=== PATIENT | female | born 1985 | race Caucasian/White ===

== ENCOUNTER 2023-06-25 13:50 | Emergency (ER) | payer BC, SELFPAY ==
[2023-06-25] VITALS (11 sets, daily range): BP systolic 102–128; BP diastolic 69–82; PULSE 60–121; RESP 16–20; TEMP 36.8–36.9; O2SAT 98–100; BMI 24.5
--- NOTE | 2023-06-25 13:51 | ECG_ITS ---
APPROVED REPORT Exam: Resting ECG HR:121 bpm ECG Measurements Heart Rate 121 AXES VA 161 P 77 QRSd 81 QRS 76 QT 338 T 33 QTc 410 Conclusion SINUS TACHYCARDIA NONSPECIFIC ST & T-WAVE ABNORMALITY ABNORMAL RHYTHM ECG Electronically signed by : INDIA FRANK, 06/25/2023 23:36:31
--- NOTE | 2023-06-25 14:11 | CT_ITS ---
FINAL REPORT TECHNIQUE: The patient was injected with IV contrast. Axial images were obtained through the chest in a PE protocol. 3-D reconstruction images were also performed. Individualized dose reduction techniques using automated exposure control or adjustment of the MA and/or KV according to patient's size were employed. CLINICAL HISTORY: chest pain, presyncope, L arm pain/tingling COMPARISON: None FINDINGS: Mediastinal vasculature is adequately opacified. No pulmonary artery filling defects are identified to suggest PE. There is no aortic dissection. There is no axillary adenopathy. There is no hilar or mediastinal adenopathy. There is soft tissue in the anterior mediastinum that is likely thymic in origin. The heart size is normal. There is no pericardial or pleural effusion. Limited images of the upper abdomen are unremarkable. No suspicious infiltrate or nodule is identified. There is a calcified granuloma in the lingula. IMPRESSION: No pulmonary embolus or dissection. Reviewed, Interpreted and Dictated by Bhupendra Amador MD Transcribed by Candis Clayton Authenticated and [facility]
[2023-06-25 14:21] LABS: Basophils # 0.2 K/mm3 (0-0.2); Basophils % 1.5 % (0.1-2.0); Eosinophils # 0.1 K/mm3 (0.0-0.4); Eosinophils % 0.5 % (0.1-12.0); Hematocrit 46.3 % (37.0-47.0); Hemoglobin 14.9 g/dL (12.2-16.2); Lymphocytes # 3.7 K/mm3 (0.7-4.5); Lymphocytes % 35.6 % (10-50); Mean Corpuscular HGB Conc 32.2 g/dL (31.8-35.4); Mean Corpuscular Hemoglobin 30.1 pg (27.0-31.2); Mean Corpuscular Volume 93.6 fl (81-99); Mean Platelet Volume 7.6 fl (7.4-10.4); Monocytes # 0.6 K/mm3 (0.1-1.0); Monocytes % 5.3 % (1.7-9.3); Platelet Count 296 K/mm3 (142-424); Red Blood Count 4.95 M/mm3 (4.20-5.40); Red Cell Distribution Width 12.9 % (11.5-17.5); White Blood Count 10.4 K/mm3 (4.8-10.8)
[2023-06-25 14:23] LABS: Chloride 106 mmol/L (98-107); Sodium 139 mmol/L (136-145)
[2023-06-25 14:24] LABS: Potassium 3.6 mmoL/L (3.5-5.1)
[2023-06-25 14:26] LABS: Alanine Aminotransferase 29 U/L (12-78); Albumin Level 4.6 g/dl (3.5-5.0); Albumin/Globulin Ratio 1.8 (1.1-1.8); Alkaline Phosphatase 70 U/L (38-126); Anion Gap 9.6 mEq/L (5-15); Aspartate Amino Transferase 28 U/L (14-36); Bilirubin,Total 0.9 mg/dl (0.2-1.3); Blood Urea Nitrogen 13 mg/dl (7-17); Carbon Dioxide 27 mmol/L (22.0-30.0); Creatinine Clearance Estimated 90 mL/min (50-200); Estimated Glomerular Filt Rate 81 ml/min (>60); GFR (African American) 98 ML/MIN (>60); Globulin 2.6 g/dL (1.3-3.2); Total Protein,Serum 7.2 g/dl (6.3-8.2)
[2023-06-25 14:27] LABS: Calcium 9.5 mg/dl (8.4-10.2); Glucose 96 mg/dl (74-100)
--- NOTE | 2023-06-25 14:27 | ED_ITS ---
Discharge Plan Disposition Patient Disposition: Home, Self-Care Referrals Follow up/Referrals: Jamison Powell [Primary Care Provider] - See instructions Josias Pride MD [Staff Physician] - See instructions Activity Restrictions/Add. Instructions Additional Instructions/Restrictions: At this time it was felt you are safe to be discharged home. If new or worsening symptoms please do not hesitate to return the emergency department. Please call and schedule an appointment with Dr. Pride as soon as you are able. Clinical Impressions Clinical Impression: Chest pain Discharge ED Provider: Martell Geiger HPI <Brina Rodgers DO - Last Filed: 06/25/23 15:43> General Chief Complaint: Chest Pain Stated Complaint: chest pain Time Seen by Provider: 06/25/23 13:56 Mode of Arrival: Ambulatory Source of Information: Patient Limitations: No Limitations Description of Symptoms (Recalled from ER Triage Doc. 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 Patient states she has had intermittent bilateral arm weakness for a week. History of Present Illness HPI narrative: This patient is a 37-year-old female who reports a history of anxiety dysfunctional uterine bleeding, for which she has been undergoing workup for approximately 2 years, presenting with concern for chest pain. Patient reports that she has had intermittent pain and paresthesias in her left upper extremity, radiating from her neck. She states that she thought that she had pinched a nerve in her neck. This has been ongoing for several months now, so she did not think much of that. 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 It was substernal radiating to her left arm. She stated that she felt like she was going to pass out. She denies experiencing anything like this in the past. She denies any history of blood clots, clotting disorders, recent travel, surgeries, or mental medication use. She does note extensive family cardiac history, but denies any history herself. Related Data Allergies Allergy/AdvReac Type Severity Reaction Status Date / Time No Known Allergies Allergy Verified 06/25/23 14:44 PFSH <Brina Rodgers DO - Last Filed: 06/25/23 15:43> [facility] Disclaimer: The information contained in this section may have been updated after the patient was seen, as this information can be updated by other users. Social History (Updated 06/25/23 @ 15:43 by Brina Rodgers DO) Smoking Status: Never smoker alcohol intake: never current occupational status: employed Travel in the last 8 weeks: None <Brina Rodgers DO - Last Filed: 06/25/23 15:43> ROS Obtained: Yes All systems reviewed & no additional complaints except as documented Physical Exam <Brina Rodgers DO - Last Filed: 06/25/23 15:43> General General appearance: alert and in no apparent distress Head Head exam: atraumatic and normocephalic Eye Eye exam: Present normal appearance, PERRL and EOMI ENT ENT exam: Present normal exam, normal oropharynx, mucous membranes moist and normal external ear exam Neck Neck exam: Present normal inspection, full ROM and trachea midline; Absent tenderness Chest Chest inspection: Present normal inspection and symmetric chest wall rise; Absent tenderness Respiratory Respiratory exam: Present normal lung sounds bilaterally; Absent respiratory distress, wheezes, stridor or accessory muscle use Cardiovascular Cardiovascular exam: Present normal rhythm and tachycardia Abdominal Exam Abdominal exam: Present soft; Absent distention, tenderness or guarding Extremities Exam Extremities exam: Present normal inspection, full ROM and normal capillary refill; Absent tenderness or edema Back Exam Back exam: Present normal inspection and full ROM; Absent tenderness Neurological Exam Neurological exam: Present alert, oriented X3, CN II-XII intact and normal gait; Absent motor sensory deficit Psychiatric Psychiatric exam: Present normal affect and normal mood Skin Skin exam: Present warm and dry HEART Score <Brina Rodgers DO - Last Filed: 06/25/23 15:43> HEART Score HEART Score assessment performed?: Yes History (anamnesis): Moderately suspicious ECG: Normal Age: <45 years Risk factors: No known risk factors Troponin: </= normal limit HEART Score: 1 <Martell Geiger MD - Last Filed: 06/25/23 17:36> HEART Score HEART Score: 1 Procedures <Brina Rodgers DO - Last Filed: 06/25/23 15:43> Risk/Benefits of Procedure(s) Were Explained: Yes Limited Ultrasound Findings:: Limited cardiac ultrasound Indication: Chest pain, presyncope Identified cardiac views: [-Cardiac parasternal long axis] [-Cardiac parasternal short axis] [-Cardiac apical four-chamber] [-Cardiac subxiphoid] Findings: [-Cardiac activity present -Gross wall motion normal -Pericardial effusion absent -Right heart strain absent] Impression: -[From above] Images were saved to permanent archive The study was technically adequate CPT: 79349 This study was performed by me, and I personally interpreted all images/videos. Based on my clinical judgement, these images were adequate and did not necessitate further imaging. Critical Care <Brina Rodgers, - Last Filed: 06/25/23 15:43> Critical Care Time Critical Care Time: No Medical Decision Making <Brina Rodgers DO - Last Filed: 06/25/23 15:43> Medical Records Medical records reviewed: Yes I reviewed the patient's medical records. [place] Inquiry Pt receiving controlled substance: No Vital Signs Vital Signs: 06/25/23 13:51 06/25/23 14:00 06/25/23 14:03 Temperature 98.4 F Temperature Source Oral Pulse Rate 91 H 121 H Pulse Rate [Right] 108 H Respiratory Rate 18 20 Blood Pressure 121/82 Blood Pressure [Right Arm] 128/82 Blood Pressure Mean 98 Blood Pressure Mean [Right Arm] 97 Blood Pressure Source [Right Arm] Automatic Cuff 02 Sat by Pulse Oximetry 100 100 Oxygen Delivery Method Room Air 06/25/23 14:30 06/25/23 15:00 06/25/23 15:52 Temperature Temperature Source Pulse Rate 78 88 78 Pulse Rate [Right] Respiratory Rate 20 20 18 Blood Pressure 116/78 114/70 111/74 Blood Pressure [Right Arm] Blood Pressure Mean 88 95 85 Blood Pressure Mean [Right Arm] Blood Pressure Source [Right Arm] 02 Sat by Pulse Oximetry 100 100 100 Oxygen Delivery Method 06/25/23 16:00 06/25/23 16:30 06/25/23 17:00 Temperature Temperature Source Pulse Rate 68 72 72 Pulse Rate [Right] Respiratory Rate 20 18 18 Blood Pressure 113/73 112/69 119/76 Blood Pressure [Right Arm] Blood Pressure Mean 84 82 84 Blood Pressure Mean [Right Arm] Blood Pressure Source [Right Arm] 02 Sat by Pulse Oximetry 100 99 99 Oxygen Delivery Method 06/25/23 17:30 Temperature Temperature Source Pulse Rate 62 Pulse Rate [Right] Respiratory Rate 16 Blood Pressure 102/74 L Blood Pressure [Right Arm] Blood Pressure Mean Blood Pressure Mean [Right Arm] Blood Pressure Source [Right Arm] 02 Sat by Pulse Oximetry 98 Oxygen Delivery Method Lab Data Labs: Lab Results 06/25/23 13:55: WBC 10.4, RBC 4.95, Hgb 14.9, Hct 46.3, MCV 93.6, MCH 30.1, MCHC 32.2, RDW 12.9, Plt Count 296, MPV 7.6, Neut % (Auto) 57.0, Lymph % (Auto) 35.6, Mcdowell % (Auto) 5.3, Eos % (Auto) 0.5, Baso % (Auto) 1.5, Neut # (Auto) 6.0, Lymph # (Auto) 3.7, Mcdowell # (Auto) 0.6, Eos # (Auto) 0.1, Baso # (Auto) 0.2, Sodium 139, Potassium 3.6, Chloride 106, Carbon Dioxide 27, Anion Gap 9.6, BUN 13, Creatinine 0.80, Estimated Creat Clear 90, Estimated GFR 81, Est GFR ( Amer) 98, Glucose 96, Calcium 9.5, Total Bilirubin 0.9, AST 28, ALT 29, Alkaline Phosphatase 70, Troponin I < 0.01, Total Protein 7.2, Albumin 4.6, Globulin 2.6, Albumin/Globulin Ratio 1.8, Serum HCG, Qual Negative 06/25/23 16:50: Troponin I < 0.01 06/25/23 13:55 06/25/23 13:55 Response Orders (Tests/Meds): ED MEDICATIONS Discontinued Medications Generic Name Dose Route Start Last Admin Trade Name Ramseyq PRN Reason Stop Dose Admin Lactated Ringer's 1,000 mls @ 999 mls/hr 06/25/23 14:33 06/25/23 14:45 Lactated Ringer's 1000 Ml Bag IV 06/25/23 15:33 999 mls/hr .Q1H1M ONE Administration Iopamidol 70 ml 06/25/23 15:32 06/25/23 15:33 Iopamidol-370 (76%);100ml Bottle IV 06/25/23 15:33 70 ml ONCE ONE Administration Ketorolac Tromethamine 15 mg 06/25/23 15:00 06/25/23 15:03 Ketorolac 30mg/Ml Vial IV 06/25/23 15:01 15 mg ONCE ONE Administration Sodium Chloride 50 ml 06/25/23 15:32 06/25/23 15:33 0.9 % Sodium Chloride 50 Ml Vial IV 06/25/23 15:33 50 ml ONCE ONE Administration Sodium Chloride 10 ml 06/25/23 15:32 06/25/23 15:33 Sodium Chloride 0.9% 10ml Syr (Rad Only) IV 06/25/23 15:33 10 ml ONCE ONE Administration ORDERS Category Date Time Status CT angio chest PE protocol Stat Cat Scan 06/25/23 14:11 Completed POCUS Point of Care (ER Only) Stat Exams 06/25/23 14:33 Completed CBC w/Auto Diff [Complete Blood Count Auto Diff] Stat Lab 06/25/23 13:55 Completed Comprehensive Metabolic Panel Stat Lab 06/25/23 13:55 Completed HCG Qualitative, Serum Stat Lab 06/25/23 13:55 Completed Troponin I Q3H Lab 06/25/23 16:50 Completed Troponin I Q3H Lab 06/25/23 20:15 Ordered Troponin I Stat Lab 06/25/23 13:55 Completed ECG Data Tracing #1: Attestation: I reviewed this ECG and interpreted as documented below: ECG Narrative: Sinus tachycardia with a ventricular rate of 121 bpm. No obvious acute ST elevations concerning for STEMI. 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 Differential diagnoses considered include but are not limited to ACS, dysrhythmia, PE, pleurisy, anxiety. Patient also has had neck pain radiating down her left arm that has been going on for several months. Ruling out the most morbid conditions drove assessment. On exam, the patient is well-appearing and is resting comfortably in bed. She has sinus tachycardia on cardiac telemetry, but otherwise vitals are reassuring with no hypoxia, hypotension, or other issues. EKG demonstrates sinus tachycardia without other acute concern. Workup included CBC, CMP, test, troponin, CTA of the chest, and CT C-spine given her neck pain. She was given a bolus of IV fluids. Bedside cardiac ultrasound obtained that did not demonstrate any acutely concerning abnormalities. Labs thus far reassuring with no significantly concerning abnormalities. Initial troponin is negative. Heart score overall 1. CT imaging is pending at this time. Patient care signed out to incoming provider, Dr. Geiger. <Martell Geiger MD - Last Filed: 06/25/23 17:36> Vital Signs Vital Signs: 06/25/23 13:51 06/25/23 14:00 06/25/23 14:03 Temperature 98.4 F Temperature Source Oral Pulse Rate 91 H 121 H Pulse Rate [Right] 108 H Respiratory Rate 18 20 Blood Pressure 121/82 Blood Pressure [Right Arm] 128/82 Blood Pressure Mean 98 Blood Pressure Mean [Right Arm] 97 Blood Pressure Source [Right Arm] Automatic Cuff 02 Sat by Pulse Oximetry 100 100 Oxygen Delivery Method Room Air 06/25/23 14:30 06/25/23 15:00 06/25/23 15:52 Temperature Temperature Source Pulse Rate 78 88 78 Pulse Rate [Right] Respiratory Rate 20 20 18 Blood Pressure 116/78 114/70 111/74 Blood Pressure [Right Arm] Blood Pressure Mean 88 95 85 Blood Pressure Mean [Right Arm] Blood Pressure Source [Right Arm] 02 Sat by Pulse Oximetry 100 100 100 Oxygen Delivery Method 06/25/23 16:00 06/25/23 16:30 06/25/23 17:00 Temperature Temperature Source Pulse Rate 68 72 72 Pulse Rate [Right] Respiratory Rate 20 18 18 Blood Pressure 113/73 112/69 119/76 Blood Pressure [Right Arm] Blood Pressure Mean 84 82 84 Blood Pressure Mean [Right Arm] Blood Pressure Source [Right Arm] 02 Sat by Pulse Oximetry 100 99 99 Oxygen Delivery Method 06/25/23 17:30 Temperature Temperature Source Pulse Rate 62 Pulse Rate [Right] Respiratory Rate 16 Blood Pressure 102/74 L Blood Pressure [Right Arm] Blood Pressure Mean Blood Pressure Mean [Right Arm] Blood Pressure Source [Right Arm] 02 Sat by Pulse Oximetry 98 Oxygen Delivery Method Lab Data Labs: Lab Results 06/25/23 13:55: WBC 10.4, RBC 4.95, Hgb 14.9, Hct 46.3, MCV 93.6, MCH 30.1, MCHC 32.2, RDW 12.9, Plt Count 296, MPV 7.6, Neut % (Auto) 57.0, Lymph % (Auto) 35.6, Mcdowell % (Auto) 5.3, Eos % (Auto) 0.5, Baso % (Auto) 1.5, Neut # (Auto) 6.0, Lymph # (Auto) 3.7, Mcdowell # (Auto) 0.6, Eos # (Auto) 0.1, Baso # (Auto) 0.2, Sodium 139, Potassium 3.6, Chloride 106, Carbon Dioxide 27, Anion Gap 9.6, BUN 13, Creatinine 0.80, Estimated Creat Clear 90, Estimated GFR 81, Est GFR ( Amer) 98, Glucose 96, Calcium 9.5, Total Bilirubin 0.9, AST 28, ALT 29, Alkaline Phosphatase 70, Troponin I < 0.01, Total Protein 7.2, Albumin 4.6, Globulin 2.6, Albumin/Globulin Ratio 1.8, Serum HCG, Qual Negative 06/25/23 16:50: Troponin I < 0.01 Response Orders (Tests/Meds): ED MEDICATIONS Discontinued Medications Generic Name Dose Route Start Last Admin Trade Name Ramseyq PRN Reason Stop Dose Admin Lactated Ringer's 1,000 mls @ 999 mls/hr 06/25/23 14:33 06/25/23 14:45 Lactated Ringer's 1000 Ml Bag IV 06/25/23 15:33 999 mls/hr .Q1H1M ONE Administration Iopamidol 70 ml 06/25/23 15:32 06/25/23 15:33 Iopamidol-370 (76%);100ml Bottle IV 06/25/23 15:33 70 ml ONCE ONE Administration Ketorolac Tromethamine 15 mg 06/25/23 15:00 06/25/23 15:03 Ketorolac 30mg/Ml Vial IV 06/25/23 15:01 15 mg ONCE ONE Administration Sodium Chloride 50 ml 06/25/23 15:32 06/25/23 15:33 0.9 % Sodium Chloride 50 Ml Vial IV 06/25/23 15:33 50 ml ONCE ONE Administration Sodium Chloride 10 ml 06/25/23 15:32 06/25/23 15:33 Sodium Chloride 0.9% 10ml Syr (Rad Only) IV 06/25/23 15:33 10 ml ONCE ONE Administration ORDERS Category Date Time Status CT angio chest PE protocol Stat Cat Scan 06/25/23 14:11 Completed POCUS Point of Care (ER Only) Stat Exams 06/25/23 14:33 Completed CBC w/Auto Diff [Complete Blood Count Auto Diff] Stat Lab 06/25/23 13:55 Completed Comprehensive Metabolic Panel Stat Lab 06/25/23 13:55 Completed HCG Qualitative, Serum Stat Lab 06/25/23 13:55 Completed Troponin I Q3H Lab 06/25/23 16:50 Completed Troponin I Q3H Lab 06/25/23 20:15 Ordered Troponin I Stat Lab 06/25/23 13:55 Completed MDM Narrative Medical Decision Narrative: In summary, this patient is a 37-year-old female presenting to the Emergency Department for evaluation of chest pain radiating down her left arm, shortness of breath, 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 Differential diagnoses considered include but are not limited to ACS, dysrhythmia, PE, pleurisy, anxiety. Patient also has had neck pain radiating down her left arm that has been going on for several months. Ruling out the most morbid conditions drove assessment. On exam, the patient is well-appearing and is resting comfortably in bed. She has sinus tachycardia on cardiac telemetry, but otherwise vitals are reassuring with no hypoxia, hypotension, or other issues. EKG demonstrates sinus tachycardia without other acute concern. Workup included CBC, CMP, test, troponin, CTA of the chest, and CT C-spine given her neck pain. She was given a bolus of IV fluids. Bedside cardiac ultrasound obtained that did not demonstrate any acutely concerning abnormalities. Labs thus far reassuring with no significantly concerning abnormalities. Initial troponin is negative. Heart score overall 1. CT imaging is pending at this time. Patient care signed out to incoming provider, Dr. Geiger. Martell Geiger: Upon assumption of care patient was hemodynamically stable. Workup thus far is reviewed by me, hematologic labs are nonactionable, initial troponin below detectable limit. Upon repeat evaluation patient remained hemodynamically stable, resolution of tachycardia and well-appearing at bedside. CTA chest shows no evidence of pulmonary embolism or dissection. Serial troponin is nonactionable. Given this patient is appropriate for discharge at this time and will follow-up with Dr. Pride on an outpatient basis.
[2023-06-25] MEDS: LACTATED RINGERS 1000ML 1,000 ML 999 ML IV (14:45)
[2023-06-25 14:56] LABS: Troponin I < 0.01 ng/ml (0.00-0.034)
[2023-06-25] MEDS: KETOROLAC 30MG/ML VIAL 15 MG IV (15:03)
[2023-06-25 15:11] LABS: HCG Qualitative, Serum Negative (Negative)
[2023-06-25] MEDS: 0.9 % SODIUM CHLORIDE 50 ML VIAL IV (15:33)
[2023-06-25] MEDS: IOPAMIDOL-370 (76%);100ML BOTTLE 70 ML IV (15:33)
[2023-06-25] MEDS: SODIUM CHLORIDE 0.9% 10ML SYR (RAD ONLY) 10 ML IV (15:33)
--- NOTE | 2023-06-25 17:22 | PC.NURSE ---
rounded on pt , no needs at this time awaiting 2nd troponin
[2023-06-25 17:33] LABS: Troponin I < 0.01 ng/ml (0.00-0.034)
== END 2023-06-25 17:45 | disposition home or self-care (01) ==
PROVIDERS: Emergency Medicine; Emergency Provider Emergency Medicine; PCP Family Medicine
DX: R07.89 Other chest pain (principal); M79.602 Pain in left arm; M54.2 Cervicalgia; R00.0 Tachycardia, unspecified
CPT/HCPCS: 71275; 80053; 84484; 84703; 85025; 93005; 96361; 96374; 99285; Q9967